=== PATIENT | male | born 1955 | race Caucasian/White ===

== ENCOUNTER 2019-09-10 14:46 | Emergency (ER) | payer MEDICARE ==
[2019-09-10] MEDS ORDERED: Lidocaine Viscous Sol 2% 15 ml UD Cup ONE (14:55)
== END 2019-09-10 15:10 | disposition home or self-care (01) ==
LOC: BURERS 14:46
DX: T16.1XXA Foreign body in right ear, initial encounter (principal); H60.93 Unspecified otitis externa, bilateral; I49.9 Cardiac arrhythmia, unspecified; I48.91 Unspecified atrial fibrillation; I10 Essential (primary) hypertension; F17.220 Nicotine dependence, chewing tobacco, uncomplicated
CPT/HCPCS: 99282